=== PATIENT | male | born 1985 | race American Indian/Alaskan Native ===

== ENCOUNTER 2023-02-27 16:15 | Emergency (ER) | payer SELFPAY ==
[~2023-02-27] VITALS: Ht 170.2 cm; Wt 102.1 kg
[2023-02-27 16:50] VITALS: BP 136/72; PULSE 68; RESP 16; TEMP 97.6; O2SAT 96
[2023-02-27 17:01] VITALS: BP 136/72; PULSE 68; RESP 16; TEMP 97.6
[2023-02-27 17:25] VITALS: O2SAT 96
[2023-02-27] MEDS ORDERED: BACITRACIN OINT 500 UNITS/GM PKT TP ONE ×3 (17:35→19:21)
[2023-02-27] MEDS ORDERED: KETOROLAC 30 MG/ML VIAL IM ONE (17:40)
[2023-02-27] MEDS ORDERED: LIDOCAINE/EPI MPF 1%1:200000 30 ML VIAL INJ ONE (18:15)
[2023-02-27] MEDS ORDERED: KETOROLAC 30 MG/ML VIAL ONE (18:51)
[2023-02-27] MEDS ORDERED: CEPH-588 PO (19:18)
== END 2023-02-27 19:32 | disposition home or self-care (01) ==
LOC: MED 16:15
DX: S81.812A Laceration without foreign body, left lower leg, initial encounter (principal); Z79.2 Long term (current) use of antibiotics; V86.56XA Driver of dirt bike or motor/cross bike injured in nontraffic accident, initial encounter; Y93.89 Activity, other specified; Y92.89 Other specified places as the place of occurrence of the external cause; Y99.8 Other external cause status
CPT/HCPCS: 12002; 73562; 73590; 90471; 90715; 96372; 99284; J1885; J2001

== ENCOUNTER 2023-03-03 08:01 | Emergency (ER) | payer SELFPAY ==
[~2023-03-03] VITALS: Ht 170.2 cm; Wt 107.5 kg
[~2023-03-03 08:01] MED LIST: CEPH-588 PO
[2023-03-03 08:25] VITALS: BP 127/60; PULSE 80; RESP 18; TEMP 98.9; O2SAT 100
[2023-03-03 08:30] VITALS: BP 127/60; PULSE 80; RESP 18; TEMP 98.9; O2SAT 100
[2023-03-03] MEDS ORDERED: BACITRACIN OINT 500 UNITS/GM PKT TP ONE (09:20)
[2023-03-03] MEDS ORDERED: BACI-418 TP (09:21)
== END 2023-03-03 10:01 | disposition home or self-care (01) ==
LOC: MED 08:01
DX: S81.812D Laceration without foreign body, left lower leg, subsequent encounter (principal); Z48.00 Encounter for change or removal of nonsurgical wound dressing; X58.XXXD Exposure to other specified factors, subsequent encounter
CPT/HCPCS: 99282

== ENCOUNTER 2023-03-13 09:24 | Emergency (ER) | payer SELFPAY ==
[~2023-03-13] VITALS: Ht 170.2 cm; Wt 106.6 kg
[~2023-03-13 09:24] MED LIST changes: +BACI-418 TP
[2023-03-13 09:36] VITALS: BP 110/65; PULSE 68; RESP 15; TEMP 98.7; O2SAT 97
== END 2023-03-13 10:05 | disposition home or self-care (01) ==
LOC: MED 09:24
DX: S81.812D Laceration without foreign body, left lower leg, subsequent encounter (principal); Z48.02 Encounter for removal of sutures; Z79.2 Long term (current) use of antibiotics; X58.XXXD Exposure to other specified factors, subsequent encounter
CPT/HCPCS: 99281